=== PATIENT | born 2000 | race Caucasian/White ===

== ENCOUNTER 2022-10-06 22:23 | Emergency (ER) | payer SELFPAY ==
[~2022-10-06] VITALS: Ht 154.9 cm; Wt 95.5 kg
[2022-10-06 22:26] VITALS: BP 105/69; PULSE 81; RESP 18; TEMP 98.1
== END 2022-10-06 23:07 | disposition left against medical advice (07) ==
LOC: EMS 22:26
DX: Z53.21 Procedure and treatment not carried out due to patient leaving prior to being seen by health care provider (principal)
CPT/HCPCS: 99281; Z7502

== ENCOUNTER 2022-11-22 23:17 | Emergency (ER) | payer OTHER, SELFPAY ==
[~2022-11-22] VITALS: Ht 152.4 cm; Wt 92.5 kg
[2022-11-23 03:02] VITALS: BP 120/68; PULSE 62; RESP 17; TEMP 98
[2022-11-23 03:19] LABS: BASOPHILS % (AUTO) 0.6 % (0.0-2.0); EOSINOPHILS % (AUTO) 3.3 % (1.0-6.0); LYMPHOCYTES # (AUTO) 3.8 K/uL (2.0-11.5); LYMPHOCYTES % (AUTO) 26.6 % (21.0-34.0); MEAN CORPUSCULAR HEMOGLOBIN 28.4 pg (31.0-37.0); MEAN CORPUSCULAR HGB CONC 33.3 G/dL (29.0-37.0); MEAN CORPUSCULAR VOLUME 85 fL (95-121); MONOCYTES # (AUTO) 1.3 K/uL (0.1-1.0); MONOCYTES % (AUTO) 9.3 % (2.0-9.0); NEUTROPHILS # (AUTO) 8.6 K/uL (5.0-21.0); NEUTROPHILS % (AUTO) 60.2 % (53.0-62.0); PLATELET COUNT (AUTO) 331 K/uL (150-450); RED BLOOD CELL COUNT(AUTO) 4.92 MIL/uL (4.00-6.60); WHITE BLOOD COUNT (AUTO) 14.4 K/uL (4.5-11.0)
[2022-11-23 03:30] LABS: CALCIUM, TOTAL 9.4 mg/dL (8.8-10.5); CARBON DIOXIDE 27 mmol/L (22-29); CHLORIDE 102 mmol/L (98-107); CREATININE 0.86 mg/dL (0.60-1.30); GLOMERULAR FILTR. RATE CALC > 60 mL/min; GLUCOSE,RANDOM 104 mg/dL (70-110); POTASSIUM 3.8 mmol/L (3.5-5.1); UREA NITROGEN, BLOOD 9 mg/dL (7-18)
[2022-11-23 03:32] LABS: ALANINE AMINOTRANSFERASE 41 U/L (12-78); ALKALINE PHOSPHATASE 54 U/L (46-116); ASPARTATE AMINOTRANSFERASE 27 U/L (15-37); BILIRUBIN,TOTAL 0.3 mg/dL (0.1-1.0); TOTAL PROTEIN, SERUM 7.2 g/dL (6.4-8.2)
[2022-11-23 03:43] LABS: ANION GAP 9 mmol/L (8-16); SODIUM SERUM 138 mmol/L (136-145)
== END 2022-11-23 04:49 | disposition home or self-care (01) ==
LOC: EMS 23:18
DX: R19.7 Diarrhea, unspecified (principal); F41.9 Anxiety disorder, unspecified; F31.9 Bipolar disorder, unspecified; F12.90 Cannabis use, unspecified, uncomplicated; Z88.0 Allergy status to penicillin; Z88.8 Allergy status to other drugs, medicaments and biological substances
CPT/HCPCS: 80053; 85025; 99283

== ENCOUNTER 2022-11-23 05:38 | Emergency (ER) | payer OTHER ==
[~2022-11-23] VITALS: Ht 157.5 cm; Wt 95.0 kg
[2022-11-23 05:46] VITALS: TEMP 98.6
[2022-11-23 06:13] LABS: PH,URINE DRUG SCREEN 6.5 (5.0-8.0)
[2022-11-23 06:19] LABS: AMPHET/METH SCREEN,URINE NEGATIVE (NEGATIVE); BARBITURATE SCREEN, URINE NEGATIVE (NEGATIVE); BENZODIAZEPINES SCREEN,URINE NEGATIVE (NEGATIVE); CANNABINOID SCREEN,URINE POSITIVE (NEGATIVE); COCAINE SCREEN,URINE NEGATIVE (NEGATIVE); METHADONE SCREEN, URINE NEGATIVE (NEGATIVE); OPIATE SCREEN,URINE NEGATIVE (NEGATIVE); PHENCYCLIDINE SCREEN,URINE NEGATIVE (NEGATIVE)
[2022-11-23 06:25] LABS: HCG,QUANTITATIVE < 1 mIU/mL (0-6)
[2022-11-23 06:26] LABS: ALCOHOL, BLOOD (SERUM) < 3 mg/dL (0-10)
[2022-11-23 06:26] LABS: ALCOHOL, URINE DRUG SCREEN NEGATIVE (NEGATIVE)
[2022-11-23 07:26] LABS: COVID AG,FIA SOURCE NASAL SWAB
[2022-11-23 07:49] LABS: SARS-COV2 (COVID) ANTIGEN,FIA Negative (Negative)
[2022-11-23 09:49] VITALS: BP 113/76; PULSE 115; RESP 18
== END 2022-11-23 10:00 | disposition home or self-care (01) ==
LOC: EMS 05:40
DX: R45.851 Suicidal ideations (principal); F41.9 Anxiety disorder, unspecified; F32.A Depression, unspecified; F12.90 Cannabis use, unspecified, uncomplicated; Z88.0 Allergy status to penicillin; Z88.8 Allergy status to other drugs, medicaments and biological substances; Z20.822 Contact with and (suspected) exposure to COVID-19
CPT/HCPCS: 99285; 87426; 84702; 36415; 80307; G0480

== ENCOUNTER 2024-03-06 19:53 | Inpatient (IN) | payer MEDICAID ==
[2024-03-06 21:30] VITALS: BP 130/84; PULSE 117; PULSE 99; RESP 18; TEMP 98.1; O2SAT 97
[2024-03-06 22:11] VITALS: BP 117/93; PULSE 117; RESP 18; TEMP 98.1; O2SAT 99
[2024-03-06 22:41] LABS: GLUCOMETER DEV NAME(LOC) POC.BV; POC SARS-COV2 AG, FIA NEGATIVE (NEGATIVE)
[2024-03-07] VITALS (8 sets, daily range): BP systolic 100–167; BP diastolic 65–92; PULSE 88–114; RESP 16–20; TEMP 93–98.9; O2SAT 93–99
[2024-03-07] MEDS ORDERED: INFLUENZA VIRUS VACCINE TVS (6MO+) 2024-25/PF 45 MCG/0.5 ML SYRINGE IM. ONE (00:15)
[2024-03-07] MEDS: LORazepam 2 MG TABLET PO PRN (03:11)
[2024-03-07 09:04] LABS: BASOPHILS % (AUTO) 0.3 % (0.0-2.0); EOSINOPHILS % (AUTO) 0.3 % (1.0-6.0); HEMATOCRIT 45.8 % (41-53); HEMOGLOBIN 15.3 g/dL (13.5-17.5); LYMPHOCYTES # (AUTO) 1.8 K/uL (2.0-11.5); LYMPHOCYTES % (AUTO) 12.6 % (21.0-34.0); MEAN CORPUSCULAR HEMOGLOBIN 29.6 pg (31.0-37.0); MEAN CORPUSCULAR HGB CONC 33.3 G/dL (29.0-37.0); MEAN CORPUSCULAR VOLUME 89 fL (95-121); MONOCYTES # (AUTO) 1.1 K/uL (0.1-1.0); MONOCYTES % (AUTO) 7.4 % (2.0-9.0); NEUTROPHILS # (AUTO) 11.3 K/uL (5.0-21.0); NEUTROPHILS % (AUTO) 79.4 % (53.0-62.0); PLATELET COUNT (AUTO) 462 K/uL (150-450); RED BLOOD CELL COUNT(AUTO) 5.15 MIL/uL (4.00-6.60); RED CELL DISTRIBUTION WIDTH 13.9 % (11.5-14.5); WHITE BLOOD COUNT (AUTO) 14.2 K/uL (4.5-11.0)
[2024-03-07 09:19] LABS: HEMOGLOBIN A1C 4.7 % (3.8-5.6)
[2024-03-07] MEDS ORDERED: CloNIDine HCL 0.1 MG TABLET PO PRN (09:30)
[2024-03-07] MEDS ORDERED: ALBUTEROL SULFATE HFA 90 MCG/PUFF 8 GM INHALER IH PRN (09:30)
[2024-03-07] MEDS ORDERED: ACETAMINOPHEN 325 MG TABLET PO PRN (09:30)
[2024-03-07] MEDS ORDERED: GuaiFENesin/D-METHORPHAN [SUGAR-FREE] 200-20MG/10 ML SYRUP UDCUP PO PRN (09:30)
[2024-03-07] MEDS ORDERED: MAGNESIUM HYDROXIDE SUSPENSION 30 ML UDCUP PO PRN (09:30)
[2024-03-07] MEDS ORDERED: DOCUSATE SODIUM 100 MG CAPSULE PO PRN (09:30)
[2024-03-07] MEDS ORDERED: BusPIRone HCL 5 MG TABLET PO PRN (09:30)
[2024-03-07] MEDS ORDERED: MAG HYDROX/ALUMINUM HYD/SIMETH ES 30 ML SUSPENSION UDCUP PO PRN (09:30)
[2024-03-07] MEDS ORDERED: PETROLATUM,WHITE 28 GM JELLY TP PRN (09:30)
[2024-03-07] MEDS ORDERED: LOPERAMIDE HCL 2 MG CAPSULE PO PRN (09:30)
[2024-03-07] MEDS ORDERED: IBUPROFEN 400 MG TABLET PO PRN (09:30)
[2024-03-07] MEDS ORDERED: NICOTINE 14 MG/24 HOUR PATCH TD PRN (09:30)
[2024-03-07] MEDS ORDERED: ONDANSETRON 4 MG TABLET PO PRN (09:30)
[2024-03-07] MEDS: BuPROPion HCL XL 150 MG ER TABLET PO SCH (09:30)
[2024-03-07 09:32] LABS: ALANINE AMINOTRANSFERASE 26 U/L (12-78); ALBUMIN 4.1 g/dL (3.4-5.0); ALKALINE PHOSPHATASE 75 U/L (46-116); ANION GAP 13 mmol/L (8-16); ASPARTATE AMINOTRANSFERASE 21 U/L (15-37); BILIRUBIN,TOTAL 0.9 mg/dL (0.1-1.0); CALCIUM, TOTAL 9.9 mg/dL (8.8-10.5); CARBON DIOXIDE 23 mmol/L (22-29); CHLORIDE 101 mmol/L (98-107); CHOL/HDL RATIO 2.4 (4.2-7.3); CHOLESTEROL 211 mg/dL (131-200); CREATININE 1.05 mg/dL (0.60-1.30); FREE T4 (FREE THYROXINE) 1.21 ng/dL (0.76-1.46); GLOMERULAR FILTR. RATE CALC > 60 mL/min; GLUCOSE,RANDOM 101 mg/dL (70-110); HCG,QUANTITATIVE < 1 mIU/mL (0-6); HDL CHOLESTEROL 89 mg/dL (40-60); LDL CHOL (CALC.) 110 mg/dL (0-130); POTASSIUM 3.8 mmol/L (3.5-5.1); SODIUM SERUM 137 mmol/L (136-145); THYROID STIMULATING HORMONE 4.52 uIU/mL (0.36-3.74); TOTAL PROTEIN, SERUM 8.3 g/dL (6.4-8.2); TRIGLYCERIDES 59 mg/dL (15-150); UREA NITROGEN, BLOOD 16 mg/dL (7-18)
[2024-03-07] MEDS: OXcarbazepine 300 MG TABLET PO SCH (09:43)
[2024-03-07] MEDS: HALOPERIDOL 5 MG TABLET PO PRN (14:10)
[2024-03-07] MEDS: TraZODone HCL 100 MG TABLET PO SCH (21:06)
[2024-03-07] MEDS: LITHIUM CARBONATE 300 MG CAPSULE PO SCH (21:06)
[2024-03-07] MEDS: ZOLPIDEM TARTRATE 10 MG TABLET PO PRN (21:08)
[2024-03-08] MEDS: DiphenhydrAMINE HCL 50 MG/ML VIAL IM ONE ×2 (05:28→12:21)
[2024-03-08] MEDS: LORazepam 2 MG/ML VIAL IM ONE ×2 (05:30→12:20)
[2024-03-08] MEDS: HALOPERIDOL LACTATE 5 MG/ML VIAL IM ONE ×2 (05:30→12:21)
[2024-03-08 08:29] VITALS: RESP 18
[2024-03-08 08:40] LABS: BASOPHILS % (AUTO) 0.7 % (0.0-2.0); EOSINOPHILS % (AUTO) 1.5 % (1.0-6.0); HEMOGLOBIN 13.9 g/dL (13.5-17.5); LYMPHOCYTES # (AUTO) 1.7 K/uL (2.0-11.5); LYMPHOCYTES % (AUTO) 17.6 % (21.0-34.0); MEAN CORPUSCULAR HEMOGLOBIN 30.7 pg (31.0-37.0); MEAN CORPUSCULAR HGB CONC 34.7 G/dL (29.0-37.0); MEAN CORPUSCULAR VOLUME 89 fL (95-121); MONOCYTES # (AUTO) 0.9 K/uL (0.1-1.0); NEUTROPHILS # (AUTO) 6.8 K/uL (5.0-21.0); NEUTROPHILS % (AUTO) 71.2 % (53.0-62.0); PLATELET COUNT (AUTO) 382 K/uL (150-450); RED BLOOD CELL COUNT(AUTO) 4.52 MIL/uL (4.00-6.60); RED CELL DISTRIBUTION WIDTH 13.7 % (11.5-14.5); WHITE BLOOD COUNT (AUTO) 9.6 K/uL (4.5-11.0)
[2024-03-08 08:54] LABS: HEMOGLOBIN A1C 4.7 % (3.8-5.6)
[2024-03-08 09:21] LABS: CHOL/HDL RATIO 2.6 (4.2-7.3); FREE T4 (FREE THYROXINE) 1.08 ng/dL (0.76-1.46); THYROID STIMULATING HORMONE 2.19 uIU/mL (0.36-3.74)
[2024-03-09] MEDS ORDERED: HALOPERIDOL LACTATE 5 MG/ML VIAL ONE (06:10)
[2024-03-09] MEDS ORDERED: LORazepam 2 MG/ML VIAL ONE (06:10)
[2024-03-09] MEDS ORDERED: DiphenhydrAMINE HCL 50 MG/ML VIAL ONE (06:10)
[2024-03-09] MEDS: LORazepam 2 MG/ML VIAL IM ONE (06:20)
[2024-03-09] MEDS: DiphenhydrAMINE HCL 50 MG/ML VIAL IM ONE (06:21)
[2024-03-09] MEDS: HALOPERIDOL LACTATE 5 MG/ML VIAL IM ONE (06:21)
[2024-03-09 08:45] VITALS: BP 101/66; PULSE 95; RESP 18; TEMP 98; O2SAT 97
[2024-03-09 20:21] VITALS: BP 142/90; PULSE 100; RESP 16; TEMP 98.1; O2SAT 98
[2024-03-09 20:23] VITALS: BP 142/90; PULSE 100; RESP 16; TEMP 98.1; O2SAT 98
[2024-03-10 08:10] VITALS: BP 128/78; PULSE 100; RESP 17; TEMP 97.3; O2SAT 97
[2024-03-10 08:11] VITALS: BP 128/78; PULSE 100; RESP 17; TEMP 97.3; O2SAT 97
[2024-03-10 09:11] LABS: APPEARANCE,URINE TURBID (CLEAR); BILIRUBIN,URINE NEGATIVE (NEGATIVE); COLOR,URINE YELLOW (YELLOW); GLUCOSE, URINE (UA) NEGATIVE (NEGATIVE); LEUKOCYTE ESTERASE ,URINE LARGE (NEGATIVE); NITRATE,URINE NEGATIVE (NEGATIVE); OCCULT BLOOD,URINE MODERATE (NEGATIVE); PROTEIN,URINE TRACE mg/dL (NEGATIVE); UROBILINOGEN,URINE <=1.0 mg/dL (<=1.0)
[2024-03-10 09:17] LABS: ALCOHOL, URINE DRUG SCREEN NEGATIVE (NEGATIVE); AMPHET/METH SCREEN,URINE NEGATIVE (NEGATIVE); BARBITURATE SCREEN, URINE NEGATIVE (NEGATIVE); BENZODIAZEPINES SCREEN,URINE NEGATIVE (NEGATIVE); CANNABINOID SCREEN,URINE POSITIVE (NEGATIVE); COCAINE SCREEN,URINE NEGATIVE (NEGATIVE); METHADONE SCREEN, URINE NEGATIVE (NEGATIVE); OPIATE SCREEN,URINE NEGATIVE (NEGATIVE); PHENCYCLIDINE SCREEN,URINE NEGATIVE (NEGATIVE)
[2024-03-10 09:32] LABS: BACTERIA,URINE Moderate /HPF (None Seen); RBC,URINE 0-2 /HPF (0-2); SQUAMOUS EPITHELIAL CELL,UR Few /LPF (None Seen)
[2024-03-10] MEDS: PALIPERIDONE PALMITATE 156 MG/ML SYRINGE IM SCH (17:29)
[2024-03-10 20:12] VITALS: BP 100/67; PULSE 78; RESP 16; TEMP 98.3; O2SAT 97
[2024-03-11 08:25] VITALS: RESP 18
[2024-03-11] MEDS: CIPROFLOXACIN HCL 250 MG TABLET PO SCH (09:00)
[2024-03-11 20:14] VITALS: BP 101/64; PULSE 77; RESP 16; TEMP 98.7; O2SAT 98
[2024-03-12 20:30] VITALS: RESP 16
[2024-03-13 00:51] VITALS: RESP 18; TEMP 98
[2024-03-13 08:29] VITALS: BP 100/70; PULSE 100; RESP 16; TEMP 97.9; O2SAT 96
[2024-03-13] MEDS ORDERED: CIPR-279 PO (09:57)
[2024-03-13] MEDS ORDERED: TRAZ-257 PO (10:02)
[2024-03-13] MEDS ORDERED: OXCA300T28 PO (10:02)
[2024-03-13] MEDS ORDERED: LITH300C3 PO (10:04)
[2024-03-13] MEDS ORDERED: BUPR450T5 PO (10:05)
[2024-03-13] MEDS ORDERED: BUPR-93 PO (10:10)
[2024-03-13] MEDS ORDERED: BUPR-514 PO (10:18)
[2024-03-13] MEDS ORDERED: CIPR250T6 PO (10:19)
[2024-03-13] MEDS ORDERED: TRAZ-186 PO (10:20)
[2024-03-13] MEDS ORDERED: [UNRECOGNIZED DRUG - CODE] PO (10:27)
== END 2024-03-13 12:00 | disposition left against medical advice (07) | DRG 753 ==
LOC: B3A 22:17
PROVIDERS: ADMIT Psychiatry & Neurology Child & Adolescent Psychiatry; ATTEND Psychiatry & Neurology Child & Adolescent Psychiatry
PROC: GZ56ZZZ Individual Psychotherapy, Supportive (ICD-10-PCS; principal; 2024-03-07)
PROC: GZHZZZZ Group Psychotherapy (ICD-10-PCS; 2024-03-07)
PROC: GZ52ZZZ Individual Psychotherapy, Cognitive (ICD-10-PCS; 2024-03-11)
DX: F31.5 Bipolar disorder, current episode depressed, severe, with psychotic features (principal); D72.829 Elevated white blood cell count, unspecified; D75.839 Thrombocytosis, unspecified; Z20.822 Contact with and (suspected) exposure to COVID-19; G47.00 Insomnia, unspecified; Z53.29 Procedure and treatment not carried out because of patient's decision for other reasons; F12.10 Cannabis abuse, uncomplicated
CPT/HCPCS: 70450; 80053; 80061; 80178; 80307; 81001; 83036; 84439; 84443; 84702; 85025; 87086; J1200; J1630; J2060